=== PATIENT | female | born 1955 | race American Indian/Alaskan Native ===

== ENCOUNTER 2016-09-26 05:36 | Inpatient (IN) | payer OTHER ==
[2016-09-26] MEDS ORDERED: ZOFRAN ODT PO ONE (06:23)
[2016-09-26 07:02] LABS: Basophils % (Auto) 0.4 % (0.0-1.8); Eosinophils % (Auto) 0.8 % (0.0-4.3); Hematocrit 38.7 % (30.3-42.9); Hemoglobin 12.9 gm/dl (10.1-14.3); Mean Corpuscular HGB Conc 33 % (30-34); Mean Corpuscular Hemoglobin 30 pg (28-32); Mean Corpuscular Volume 90 fl (79-97); Platelet Count 312 K/mm3 (140-440); White Blood Count 14.1 K/mm3 (4.5-11.0)
[2016-09-26 07:15] LABS: Albumin 4.4 g/dL (3.9-5); Albumin/Globulin Ratio 1.6 %; Bilirubin,Total 0.4 mg/dL (0.1-1.2); Calcium 9.3 mg/dL (8.4-10.2); Chloride 83.1 mmol/L (98-107); Potassium 4.9 mmol/L (3.6-5.0); Total Protein 7.2 g/dL (6.3-8.2)
[2016-09-26] MEDS ORDERED: NACL 0.9% 1000 ML 1,000 ML IV ONE (08:24)
[2016-09-26] MEDS ORDERED: MORPHINE IV ONE (08:25)
--- NOTE | 2016-09-26 08:28 | Emergency Department Report ---
HPI - General Chief Complaint: Abdominal Pain Time Seen by Provider: 09/26/16 08:10 - HPI HPI: This is a 60-year-old Afro-[place] female presents to the emergency department from home with complaint of a one-week history of generalized abdominal discomfort, nausea with some slight vomiting, decreased appetite and a 7 pound weight loss. Patient has [id number] diabetes. She went to an urgent care for these symptoms and was placed on some Flagyl. Her primary care doctor is Dr. Hartley. No recent travel or sick contacts at home. She denies any fever, dysuria, vaginal bleeding, vaginal discharge. She is having some trouble urinating and having bowel movements secondary to her dehydration and lack of food intake. ED Past Medical Hx - Past Medical History Previous Medical History?: Yes Hx Diabetes: Yes - Surgical History Past Surgical History?: No - Social History Smoking Status: Never Smoker Substance Use Type: None ED Review of Systems ROS: Stated complaint: NAUSEA/UNABLE TO EAT/VOMITING Other details as noted in HPI Comment: All other systems reviewed and negative Constitutional: denies: chills, fever Eyes: denies: eye pain, eye discharge, vision change ENT: denies: ear pain, throat pain Respiratory: denies: cough, shortness of breath, wheezing Cardiovascular: denies: chest pain, palpitations Endocrine: unexplained weight loss. denies: unexplained weight gain Gastrointestinal: abdominal pain, nausea, vomiting Genitourinary: denies: hematuria, discharge Musculoskeletal: denies: back pain, joint swelling, arthralgia Skin: denies: rash, lesions Neurological: denies: headache, weakness, paresthesias Physical Exam - Physical Exam Vital Signs: Vital Signs 09/26/16 09/26/16 06:14 08:11 Temperature 98.1 F Pulse Rate 75 Respiratory 18 18 Rate Blood Pressure 125/77 O2 Sat by Pulse 100 100 Oximetry Physical Exam: GENERAL: The patient is well-developed well-nourished. HEENT: Normocephalic. Atraumatic. Extraocular motions are intact. Patient has moist mucous membranes. Pupils equal reactive to light bilaterally. NECK: Supple. Trachea is midline. CHEST/LUNGS: Clear to auscultation. There is no respiratory distress noted. HEART/CARDIOVASCULAR: Regular. There is no tachycardia. There is no gallop rub or murmur. ABDOMEN: Abdomen is soft. There is some generalized tenderness to palpation of the abdomen. No guarding rebound tenderness. Patient has normal bowel sounds. There is no abdominal distention. SKIN: Skin is warm and dry. NEURO: The patient is awake, alert, and oriented. The patient is cooperative. The patient has no focal neurologic deficits. The patient has normal speech. MUSCULOSKELETAL: There is no tenderness or deformity. There is no limitation range of motion. There is no evidence of acute injury. ED Course Vital Signs 09/26/16 09/26/16 06:14 08:11 Temperature 98.1 F Pulse Rate 75 Respiratory 18 18 Rate Blood Pressure 125/77 O2 Sat by Pulse 100 100 Oximetry ED Medical Decision Making - Lab Data Result diagrams: 09/26/16 06:33 09/26/16 06:33 - Radiology Data Radiology results: report reviewed ULTRASOUND RENAL BILATERAL HISTORY: Acute renal failure. TECHNIQUE: transabdominal ultrasound with color Doppler interrogation. FINDINGS: Scans of the kidneys show normal renal contours. There is normal central calyceal clustering and good preservation of the cortical thickness. There is no evidence of mass or hydronephrosis. The views of the bladder and the region of the ureters appear normal. IMPRESSION: Unremarkable renal ultrasound. PROCEDURE: CT ABDOMEN PELVIS WO CON TECHNIQUE: Computerized axial tomography of the abdomen and pelvis was performed without intravenous contrast. This study is performed without intravascular contrast material and its sensitivity for abdominal and pelvic pathology, including neoplasms, inflammation, abscess, free fluid, thrombosis, arterial dissection and infarction, is reduced compared with a contrast enhanced study. HISTORY: abd pain COMPARISON: No prior studies are available for comparison. FINDINGS: Visualized lower thorax: No significant abnormality. Liver: Normal size and attenuation. Spleen: Normal size and attenuation. Gallbladder and biliary system: Normal. Pancreas: Normal. Adrenals: Small left adrenal gland nodule 1.3 x 1.1 centimeters. Kidneys: Suspect 8 millimeter cyst in the right mid anterior kidney. GI tract: No oral contrast. Appendix is seen without evidence of wall thickening or periappendiceal stranding. No evidence of acute appendicitis seen at this time. Scattered large bowel diverticulosis. Scattered areas of luminal narrowing. Underlying malignancy not excludable. Small amount of contrast like material seen within the large bowel. Incompletely distended stomach with prominent rugal folds may reflect gastritis. Possible small duodenal cyst. Possible spasm in the splenic flexure distal descending colon. Possible diverticulitis of the distal sigmoid colon with slight stranding and trace 2 cc fluid Lymph nodes and mesentery: Scattered mildly prominent lymph nodes including right lower quadrant area 1 centimeter range. Vasculature: Normal. Bladder: Normal. Reproductive organs: Lobular uterus. Peritoneum: 2 cc fluid pelvis. Musculoskeletal structures: No significant abnormality. Other: None. IMPRESSION: Possible focal acute diverticulitis of the distal sigmoid colon inconclusive. Followup CT scan with abundant oral contrast and IV contrast is advised. Scattered diverticulosis. Indeterminate mildly prominent gastric folds stomach. No evidence of acute appendicitis. - Medical Decision Making This is a 60-year-old female who presents to the emergency department with a 1 week history of some otherwise abdominal discomfort, nausea and vomiting, 7 pound weight loss. Patient has some abnormal labs with hyponatremia with a sodium of 125, acute kidney injury and renal failure with a creatinine 2.8, and a leukocytosis of 14,000. The CT of the abdomen and pelvis was done without contrast secondary to her renal insufficiency and came back showing possible diverticulitis of the distal sigmoid colon. For this reason she was started on IV antibiotics. A renal ultrasound was done to look for any other source of her acute kidney injury but it shows no obstructive uropathy or any significant chronic medical renal changes. However the patient will be admitted to the hospital for dehydration, acute renal failure and her hyponatremia and has been accepted for admission by the hospitalist. Critical Care Time: No Critical care attestation.: If time is entered above; I have spent that time in minutes in the direct care of this critically ill patient, excluding procedure time. ED Disposition Clinical Impression: Acute kidney injury, Hyponatremia Renal failure Qualifiers: Renal failure chronicity: acute Acute renal failure type: unspecified Qualified Code(s): N17.9 - Acute kidney failure, unspecified Abdominal pain Qualifiers: Abdominal location: generalized Qualified Code(s): R10.84 - Generalized abdominal pain Disposition: OP ADMITTED IP TO THIS HOSP Is pt being admited?: Yes Condition: Stable Time of Disposition: 13:57
--- NOTE | 2016-09-26 09:16 | Cat Scan Report ---
FINAL REPORT PROCEDURE: CT ABDOMEN PELVIS WO CON TECHNIQUE: Computerized axial tomography of the abdomen and pelvis was performed without intravenous contrast. This study is performed without intravascular contrast material and its sensitivity for abdominal and pelvic pathology, including neoplasms, inflammation, abscess, free fluid, thrombosis, arterial dissection and infarction, is reduced compared with a contrast enhanced study. HISTORY: abd pain COMPARISON: No prior studies are available for comparison. FINDINGS: Visualized lower thorax: No significant abnormality. Liver: Normal size and attenuation. Spleen: Normal size and attenuation. Gallbladder and biliary system: Normal. Pancreas: Normal. Adrenals: Small left adrenal gland nodule 1.3 x 1.1 centimeters. Kidneys: Suspect 8 millimeter cyst in the right mid anterior kidney. GI tract: No oral contrast. Appendix is seen without evidence of wall thickening or periappendiceal stranding. No evidence of acute appendicitis seen at this time. Scattered large bowel diverticulosis. Scattered areas of luminal narrowing. Underlying malignancy not excludable. Small amount of contrast like material seen within the large bowel. Incompletely distended stomach with prominent rugal folds may reflect gastritis. Possible small duodenal cyst. Possible spasm in the splenic flexure distal descending colon. Possible diverticulitis of the distal sigmoid colon with slight stranding and trace 2 cc fluid Lymph nodes and mesentery: Scattered mildly prominent lymph nodes including right lower quadrant area 1 centimeter range. Vasculature: Normal. Bladder: Normal. Reproductive organs: Lobular uterus. Peritoneum: 2 cc fluid pelvis. Musculoskeletal structures: No significant abnormality. Other: None. IMPRESSION: Possible focal acute diverticulitis of the distal sigmoid colon inconclusive. Followup CT scan with abundant oral contrast and IV contrast is advised. Scattered diverticulosis. Indeterminate mildly prominent gastric folds stomach. No evidence of acute appendicitis.
[2016-09-26] MEDS ORDERED: ZOSYN/NS 4.5GM/100ML 4.5 GM/100 ML VIAL IV ONE (09:20)
[2016-09-26 09:21] LABS: Bacteria,Urine 1+ /HPF (Negative); Bilirubin,Urine NEG (Negative); Blood,Urine NEG (Negative); Ketones,Urine NEG (Negative); Leukocyte Esterase,Urine TR (Negative); Mucus,Urine FEW /HPF; Nitrite,Urine NEG (Negative); Protein,Urine <15 mg/dL mg/dL (Negative); Urobilinogen,Urine < 2.0 mg/dL (<2.0)
--- NOTE | 2016-09-26 09:53 | Ultrasound Report ---
ULTRASOUND RENAL BILATERAL HISTORY: Acute renal failure. TECHNIQUE: transabdominal ultrasound with color Doppler interrogation. FINDINGS: Scans of the kidneys show normal renal contours. There is normal central calyceal clustering and good preservation of the cortical thickness. There is no evidence of mass or hydronephrosis. The views of the bladder and the region of the ureters appear normal. IMPRESSION: Unremarkable renal ultrasound.
[2016-09-26] MEDS ORDERED: DULCOLAX PR PRN (10:24)
[2016-09-26] MEDS ORDERED: D50W (25GM) IV PRN (10:24)
[2016-09-26] MEDS ORDERED: MILK OF MAGNESIA PO PRN (10:24)
[2016-09-26] MEDS ORDERED: MORPHINE IV PRN (11:00)
[2016-09-26] MEDS ORDERED: ZOFRAN IV PRN (11:00)
[2016-09-26] MEDS ORDERED: PERCOCET 5/325 PO PRN (11:00)
[2016-09-26] MEDS ORDERED: TYLENOL PO PRN (11:00)
--- NOTE | 2016-09-26 11:19 | History and Physical Report ---
History of Present Illness Date of examination: 09/26/16 Date of admission: 09/26/16 Chief complaint: Abdominal pain Past History Past Medical History: diabetes, hepatitis (Hep C, 2002), hypertension, hyperlipidemia Past Surgical History: No surgical history Social history: , alcohol abuse (Occasional Beer). denies: smoking Family history: cancer (Pancreatic), diabetes Medications and Allergies Allergies Allergy/AdvReac Type Severity Reaction Status Date / Time No Known Allergies Allergy Unverified 09/26/16 06:22 Active Meds: Active Medications Acetaminophen (Tylenol) 650 mg PO Q4H PRN PRN Reason: Pain MILD(1-3)/Fever >100.5/MEDRANO Bisacodyl (Dulcolax) 10 mg [place] QDAY PRN PRN Reason: Constipation unrelieved by MOM Dextrose (D50w (25gm)) 50 ml IV PRN PRN PRN Reason: Hypoglycemia Enoxaparin Sodium (Lovenox) 30 mg SUB-Q QDAY NOEL Levofloxacin/Dextrose (Levaquin 500mg/100ml) 500 mg in 100 mls @ 100 mls/hr IV Q24HR NOEL PRN Reason: Protocol Metronidazole (Flagyl 500 Mg/100 Ml) 500 mg in 100 mls @ 100 mls/hr IV Q8HR NOEL Sodium Chloride (Nacl 0.9% 1000 Ml) 1,000 mls @ 150 mls/hr IV DIRECT NOEL Insulin Aspart (Novolog) 0 units SUB-Q ACHS NOEL PRN Reason: Protocol Magnesium Hydroxide (Milk Of Magnesia) 30 ml PO Q4H PRN PRN Reason: Constipation Morphine Sulfate (Morphine) 2 mg IV Q4H PRN PRN Reason: Pain, Moderate (4-6) Ondansetron HCl (Zofran) 4 mg IV Q8H PRN PRN Reason: N/V unrelieved by Reglan Oxycodone/Acetaminophen (Percocet 5/325) 1 tab PO Q6H PRN PRN Reason: Pain, Moderate (4-6) Review of Systems Constitutional: weight loss, poor appetite, no fever, no chills Ears, nose, mouth and throat: no decreased hearing, no nasal congestion Breasts: normal Respiratory: no cough with sputum, no shortness of breath, no congestion Gastrointestinal: abdominal pain, no nausea, no vomiting, no diarrhea, no constipation Genitourinary Female: dysmenorrhea, no dyspareunia Rectal: no pain Musculoskeletal: no low back pain, no leg numbness/tingling, no gait dysfunction Integumentary: rash, darkening of skin, depigmentation Exam - Constitutional Vitals: Temp Pulse Resp BP Pulse Ox 98.1 F 75 18 120/63 99 09/26/16 06:14 09/26/16 06:14 09/26/16 09:32 09/26/16 08:46 09/26/16 08:46 Results - Labs CBC & Chem 7: 09/26/16 06:33 09/26/16 06:33 Labs: Laboratory Last Values WBC 14.1 K/mm3 (4.5-11.0) H 09/26/16 06:33 RBC 4.30 M/mm3 (3.65-5.03) 09/26/16 06:33 Hgb 12.9 gm/dl (10.1-14.3) 09/26/16 06:33 Hct 38.7 % (30.3-42.9) 09/26/16 06:33 MCV 90 fl (79-97) 09/26/16 06:33 MCH 30 pg (28-32) 09/26/16 06:33 MCHC 33 % (30-34) 09/26/16 06:33 RDW 13.0 % (13.2-15.2) L 09/26/16 06:33 Plt Count 312 K/mm3 (140-440) 09/26/16 06:33 Lymph % (Auto) 31.4 % (13.4-35.0) 09/26/16 06:33 [place] % (Auto) 8.4 % (0.0-7.3) H 09/26/16 06:33 Eos % (Auto) 0.8 % (0.0-4.3) 09/26/16 06:33 Baso % (Auto) 0.4 % (0.0-1.8) 09/26/16 06:33 Lymph # 4.4 K/mm3 (1.2-5.4) 09/26/16 06:33 [place] # 1.2 K/mm3 (0.0-0.8) H 09/26/16 06:33 Eos # 0.1 K/mm3 (0.0-0.4) 09/26/16 06:33 Baso # 0.1 K/mm3 (0.0-0.1) 09/26/16 06:33 Seg Neutrophils % 59.0 % (40.0-70.0) 09/26/16 06:33 Seg Neutrophils # 8.3 K/mm3 (1.8-7.7) H 09/26/16 06:33 Sodium 125 mmol/L (137-145) L 09/26/16 06:33 Potassium 4.9 mmol/L (3.6-5.0) 09/26/16 06:33 Chloride 83.1 mmol/L (98-107) L 09/26/16 06:33 Carbon Dioxide 25 mmol/L (22-30) 09/26/16 06:33 Anion Gap 22 mmol/L 09/26/16 06:33 BUN 28 mg/dL (7-17) H 09/26/16 06:33 Creatinine 2.8 mg/dL (0.7-1.2) H 09/26/16 06:33 Estimated GFR 21 ml/min 09/26/16 06:33 BUN/Creatinine Ratio 10.00 % 09/26/16 06:33 Glucose 138 mg/dL (65-100) H 09/26/16 06:33 Calcium 9.3 mg/dL (8.4-10.2) 09/26/16 06:33 Total Bilirubin 0.40 mg/dL (0.1-1.2) 09/26/16 06:33 AST 18 units/L (5-40) 09/26/16 06:33 ALT 14 units/L (7-56) 09/26/16 06:33 Alkaline Phosphatase 80 units/L (35-129) 09/26/16 06:33 Total Protein 7.2 g/dL (6.3-8.2) 09/26/16 06:33 Albumin 4.4 g/dL (3.9-5) 09/26/16 06:33 Albumin/Globulin Ratio 1.6 % 09/26/16 06:33 Lipase 42 units/L (13-60) 09/26/16 06:33 Urine Color Yellow (Yellow) 09/26/16 09:04 Urine Turbidity Clear (Clear) 09/26/16 09:04 Urine pH 5.0 (5.0-7.0) 09/26/16 09:04 Ur Specific [place] 1.011 (1.003-1.030) 09/26/16 09:04 Urine Protein <15 mg/dl mg/dL (Negative) 09/26/16 09:04 Urine Glucose (UA) Neg mg/dL (Negative) 09/26/16 09:04 Urine Ketones Neg mg/dL (Negative) 09/26/16 09:04 Urine Blood Neg (Negative) 09/26/16 09:04 Urine Nitrite Neg (Negative) 09/26/16 09:04 Urine Bilirubin Neg (Negative) 09/26/16 09:04 Urine Urobilinogen < 2.0 mg/dL (<2.0) 09/26/16 09:04 Ur Leukocyte Esterase Tr (Negative) 09/26/16 09:04 Urine WBC (Auto) 1.0 /HPF (0.0-6.0) 09/26/16 09:04 Urine RBC (Auto) 1.0 /HPF (0.0-6.0) 09/26/16 09:04 U Epithel Cells (Auto) 1.0 /HPF (0-13.0) 09/26/16 09:04 Urine Bacteria (Auto) 1+ /HPF (Negative) 09/26/16 09:04 Urine Mucus Few /HPF 09/26/16 09:04
[2016-09-26] MEDS: NOVOLOG SUB-Q SCH ×3 (11:45→23:14)
[2016-09-26] MEDS: NACL 0.9% 1000 ML 1,000 ML IV SCH (12:48)
--- NOTE | 2016-09-26 13:10 | History and Physical Report ---
History of Present Illness Date of examination: 09/26/16 Date of admission: 09/26/16 10:24 Chief complaint: Abdominal pain History of present illness: 60-year-old with past medical history hypertension diabetes hyperlipidemia who presented with 2 weeks of abdominal pain. She states that her symptoms started after she eats some take-out that she didn't quite rest. She initially had vomiting in nausea that began 2 hours after eating the food. Over the past week she's complaining of anorexia, weight loss of 7 pounds, continued nausea and vomiting, however the nausea and vomiting has now resolved. She was complaining of abdominal pain which felt like a band across her hypochondrium, 7 out of 10, dull, exacerbated by eating. She'll complaining of not having any bowel movements, but she also feels that that is because she was able to take any food and keep it down. She denies fever she admits chills, she also is complaining of reduced urine output. She states that she went to go see a doctor in urgent care some days ago, she did not have any abdominal imaging but she was started on Flagyl. At this time she states that her pain is resolved, she does admit to feeling thirsty and dry. Past History Past Medical History: diabetes, hepatitis (Hepatitis C 2002 and completed the 6 months treatment), hypertension, hyperlipidemia Past Surgical History: No surgical history Social history: , lives with family, alcohol abuse (Drink a beer occasionally), full code. denies: smoking Family history: cancer (pancreatic), diabetes Medications and Allergies Allergies Allergy/AdvReac Type Severity Reaction Status Date / Time No Known Allergies Allergy Unverified 09/26/16 06:22 Home Medications Medication Instructions Recorded Confirmed Last Taken Type AtorvaSTATin [Lipitor] 40 mg PO QHS 09/26/16 09/26/16 09/25/16 History Carvedilol 12.5 mg PO DAILY 09/26/16 09/26/16 09/25/16 History Lisinopril 30 mg PO DAILY 09/26/16 09/26/16 09/25/16 History metFORMIN [Glucophage] 850 mg PO DAILY 09/26/16 09/26/16 1 Day Ago History Ciprofloxacin HCl [Ciprofloxacin 500 mg PO Q12H #14 tab 09/27/16 Unknown Rx TAB] metroNIDAZOLE [Flagyl] 500 mg PO Q8HR #21 tablet 09/27/16 Unknown Rx Active Meds: Active Medications Acetaminophen (Tylenol) 650 mg PO Q4H PRN PRN Reason: Pain MILD(1-3)/Fever >100.5/MEDRANO Bisacodyl (Dulcolax) 10 mg [place] QDAY PRN PRN Reason: Constipation unrelieved by MOM Dextrose (D50w (25gm)) 50 ml IV PRN PRN PRN Reason: Hypoglycemia Enoxaparin Sodium (Lovenox) 30 mg SUB-Q QDAY [facility] Levofloxacin/Dextrose (Levaquin 500mg/100ml) 500 mg in 100 mls @ 100 mls/hr IV Q24HR NOEL PRN Reason: Protocol Metronidazole (Flagyl 500 Mg/100 Ml) 500 mg in 100 mls @ 100 mls/hr IV Q8HR [facility] [place] Sodium Chloride (Nacl 0.9% 1000 Ml) 1,000 mls @ 150 mls/hr IV DIRECT NOEL Last Admin: 09/26/16 12:48 Dose: 150 mls/hr Insulin Aspart (Novolog) 0 units SUB-Q ACHS NOEL PRN Reason: Protocol Last Admin: 09/26/16 11:45 Dose: Not Given Magnesium Hydroxide (Milk Of Magnesia) 30 ml PO Q4H PRN PRN Reason: Constipation Morphine Sulfate (Morphine) 2 mg IV Q4H PRN PRN Reason: Pain, Moderate (4-6) Ondansetron HCl (Zofran) 4 mg IV Q8H PRN PRN Reason: N/V unrelieved by Reglan Oxycodone/Acetaminophen (Percocet 5/325) 1 tab PO Q6H PRN PRN Reason: Pain, Moderate (4-6) Review of Systems Constitutional: fever, chills Ears, nose, mouth and throat: no decreased hearing, no nasal congestion, no headache Breasts: normal Cardiovascular: no chest pain, no syncope, no dyspnea on exertion Respiratory: no cough with sputum, no shortness of breath Gastrointestinal: abdominal pain, no nausea, no vomiting, no diarrhea, no constipation Genitourinary Female: no dyspareunia, no stress incontinence Rectal: no pain Musculoskeletal: no low back pain, no leg numbness/tingling, no gait dysfunction Integumentary: darkening of skin, depigmentation Neurological: no head injury, no seizures, no syncope, no headaches Psychiatric: no anxiety, no suicidal ideation, no depression Endocrine: weight change Exam - Constitutional Vitals: Temp Pulse Resp BP Pulse Ox 98.1 F 75 18 115/67 99 09/26/16 06:14 09/26/16 06:14 09/26/16 09:32 09/26/16 11:46 09/26/16 11:46 General appearance: Present: no acute distress - EENT Eyes: Present: PERRL ENT: hearing intact - Neck Neck: Present: supple - Respiratory Respiratory effort: normal Respiratory: bilateral: CTA - Cardiovascular Rhythm: regular Heart Sounds: Present: S1 & S2 - Extremities Extremities: pulses symmetrical, No edema Peripheral Pulses: within normal limits - Abdominal General gastrointestinal: Present: soft, non-tender, normal bowel sounds Female genitourinary: Present: normal - Integumentary Integumentary: Present: warm, dry Body Four View: 1 - Chronic skin condition; Dry and discoloration 2 - Chronic skin condition; dry and discoloration - Musculoskeletal Musculoskeletal: strength equal bilaterally - Psychiatric Psychiatric: appropriate mood/affect, intact judgment & insight - Neurologic Neurologic: CNII-XII intact, moves all extremities - Allied Health Allied health notes reviewed: nursing Results - Labs CBC & Chem 7: 09/27/16 05:01 09/27/16 05:01 Labs: Laboratory Last Values WBC 14.1 K/mm3 (4.5-11.0) H 09/26/16 06:33 RBC 4.30 M/mm3 (3.65-5.03) 09/26/16 06:33 Hgb 12.9 gm/dl (10.1-14.3) 09/26/16 06:33 Hct 38.7 % (30.3-42.9) 09/26/16 06:33 MCV 90 fl (79-97) 09/26/16 06:33 MCH 30 pg (28-32) 09/26/16 06:33 MCHC 33 % (30-34) 09/26/16 06:33 RDW 13.0 % (13.2-15.2) L 09/26/16 06:33 Plt Count 312 K/mm3 (140-440) 09/26/16 06:33 Lymph % (Auto) 31.4 % (13.4-35.0) 09/26/16 06:33 [place] % (Auto) 8.4 % (0.0-7.3) H 09/26/16 06:33 Eos % (Auto) 0.8 % (0.0-4.3) 09/26/16 06:33 Baso % (Auto) 0.4 % (0.0-1.8) 09/26/16 06:33 Lymph # 4.4 K/mm3 (1.2-5.4) 09/26/16 06:33 [place] # 1.2 K/mm3 (0.0-0.8) H 09/26/16 06:33 Eos # 0.1 K/mm3 (0.0-0.4) 09/26/16 06:33 Baso # 0.1 K/mm3 (0.0-0.1) 09/26/16 06:33 Seg Neutrophils % 59.0 % (40.0-70.0) 09/26/16 06:33 Seg Neutrophils # 8.3 K/mm3 (1.8-7.7) H 09/26/16 06:33 Sodium 125 mmol/L (137-145) L 09/26/16 06:33 Potassium 4.9 mmol/L (3.6-5.0) 09/26/16 06:33 Chloride 83.1 mmol/L (98-107) L 09/26/16 06:33 Carbon Dioxide 25 mmol/L (22-30) 09/26/16 06:33 Anion Gap 22 mmol/L 09/26/16 06:33 BUN 28 mg/dL (7-17) H 09/26/16 06:33 Creatinine 2.8 mg/dL (0.7-1.2) H 09/26/16 06:33 Estimated GFR 21 ml/min 09/26/16 06:33 BUN/Creatinine Ratio 10.00 % 09/26/16 06:33 Glucose 138 mg/dL (65-100) H 09/26/16 06:33 Calcium 9.3 mg/dL (8.4-10.2) 09/26/16 06:33 Total Bilirubin 0.40 mg/dL (0.1-1.2) 09/26/16 06:33 AST 18 units/L (5-40) 09/26/16 06:33 ALT 14 units/L (7-56) 09/26/16 06:33 Alkaline Phosphatase 80 units/L (35-129) 09/26/16 06:33 Total Protein 7.2 g/dL (6.3-8.2) 09/26/16 06:33 Albumin 4.4 g/dL (3.9-5) 09/26/16 06:33 Albumin/Globulin Ratio 1.6 % 09/26/16 06:33 Lipase 42 units/L (13-60) 09/26/16 06:33 Urine Color Yellow (Yellow) 09/26/16 09:04 Urine Turbidity Clear (Clear) 09/26/16 09:04 Urine pH 5.0 (5.0-7.0) 09/26/16 09:04 Ur Specific [place] 1.011 (1.003-1.030) 09/26/16 09:04 Urine Protein <15 mg/dl mg/dL (Negative) 09/26/16 09:04 Urine Glucose (UA) Neg mg/dL (Negative) 09/26/16 09:04 Urine Ketones Neg mg/dL (Negative) 09/26/16 09:04 Urine Blood Neg (Negative) 09/26/16 09:04 Urine Nitrite Neg (Negative) 09/26/16 09:04 Urine Bilirubin Neg (Negative) 09/26/16 09:04 Urine Urobilinogen < 2.0 mg/dL (<2.0) 09/26/16 09:04 Ur Leukocyte Esterase Tr (Negative) 09/26/16 09:04 Urine WBC (Auto) 1.0 /HPF (0.0-6.0) 09/26/16 09:04 Urine RBC (Auto) 1.0 /HPF (0.0-6.0) 09/26/16 09:04 U Epithel Cells (Auto) 1.0 /HPF (0-13.0) 09/26/16 09:04 Urine Bacteria (Auto) 1+ /HPF (Negative) 09/26/16 09:04 Urine Mucus Few /HPF 09/26/16 09:04 Assessment and Plan Assessment and plan: 60-year-old -[place] female presented to the ED with complaints of 2 weeks of abdomen pain, nausea and vomiting. The patient reported going to the urgent care on Wednesday,09/23/16, and received antibiotics, CT of Abdomen was ordered but could not get it done because she to be NPO prior. Patient reported over the course of the 2 weeks she's tried Pedialyte and had no relief of symptoms. However, yesterday she had Ensure supplement and stated, it did not aggravate her stomach symptoms. Patient's past medical history diabetes, hypertension, hyperlipidemia, hepatitis C 2002 and TIA 1978. On exam, patient reported feeling better, her abdominal pain is 0 after receiving morphine while in the ER. Patient denies fever, chills, headache, dizziness, nausea and vomiting. 1. Acute diverticulitis- Antibiotics ordered, pain medicine ordered when necessary, IV fluids, 2. Hyponatremia- continuous normal saline IV fluid ordered, monitor electrolytes levels 3. Acute kidney injury/vasomotor nephropathy- most likely due to dehydration, IV fluids and progress 4. DM type 2 [id number] - monitor Accu-Cheks and insulin sliding scale ordered while in the hospital, hold metformin due to acute kidney injury 5. HTN-hold SILVESTRE inhibitor and diuretic due to acute kidney injury 6. Hyperlipidemia-continue statin 7. DVT prophylaxis - Lovenox ordered Advance Directives: Yes VTE prophylaxis?: Chemical Plan of care discussed with patient/family: Yes
[2016-09-26] MEDS: FLAGYL 500 MG/100 ML 500 MG/100 ML BAG IV SCH ×2 (15:07→23:13)
[2016-09-27] MEDS: NACL 0.9% 1000 ML 1,000 ML IV SCH (04:39)
[2016-09-27 05:44] LABS: Basophils % (Auto) 0.4 % (0.0-1.8); Eosinophils % (Auto) 1.3 % (0.0-4.3); Hematocrit 35.6 % (30.3-42.9); Hemoglobin 11.7 gm/dl (10.1-14.3); Mean Corpuscular HGB Conc 33 % (30-34); Mean Corpuscular Hemoglobin 30 pg (28-32); Mean Corpuscular Volume 90 fl (79-97); Platelet Count 281 K/mm3 (140-440); Red Blood Count 3.95 M/mm3 (3.65-5.03); Red Cell Distribution Width 13.4 % (13.2-15.2); White Blood Count 11.2 K/mm3 (4.5-11.0)
[2016-09-27 06:02] LABS: Anion Gap 16 mmol/L; Blood Urea Nitrogen 15 mg/dL (7-17); Calcium 8.7 mg/dL (8.4-10.2); Carbon Dioxide 26 mmol/L (22-30); Chloride 100.8 mmol/L (98-107); Glucose 112 mg/dL (65-100); Potassium 5.1 mmol/L (3.6-5.0); Sodium 138 mmol/L (137-145)
[2016-09-27] MEDS: FLAGYL 500 MG/100 ML 500 MG/100 ML BAG IV SCH (06:52)
[2016-09-27] MEDS: NOVOLOG SUB-Q SCH ×2 (08:30→14:34)
[2016-09-27 08:45] VITALS: BP 129/77
[2016-09-27] MEDS ORDERED: KIONEX PO ONE (09:47)
--- NOTE | 2016-09-27 09:55 | Discharge Summary ---
Providers - Providers Date of Admission: 09/26/16 10:24 Attending physician: AKILAH NUNO MD Primary care physician: ALFRED RIVERA Hospitalization Condition: Stable Hospital course: 60-year-old -[place] female who presented with nausea vomiting, abdominal pain chills poor urine output, poor by mouth intake for 2 weeks. She has found some acute diverticulitis and acute kidney injury due to dehydration/ visible to nephropathy. She received IV antibiotics and IV fluids, and she clinically improved, pain resolved and renal function returned to normal values. She is being discharged an antibiotic course to take at home. Discharge diagnoses 1. Acute diverticulitis- 2. Hyponatremia/dehydration 3. Acute kidney injury/vasomotor nephropathy- 4. DM type 2 [id number] 5. HTN- 6. Hyperlipidemia Disposition: DC-01 TO HOME OR SELFCARE Time spent for discharge: 35 minutes Core Measure Documentation - Palliative Care Palliative Care/ Comfort Measures: Not Applicable - Core Measures Any of the following diagnoses?: none Exam - Constitutional Vitals: Temp Pulse Resp BP Pulse Ox 98.0 F 68 16 129/77 99 09/27/16 08:44 09/27/16 08:44 09/27/16 08:44 09/27/16 08:44 09/27/16 08:44 General appearance: Present: no acute distress, well-nourished - EENT Eyes: Present: PERRL ENT: hearing intact, clear oral mucosa - Neck Neck: Present: supple, normal ROM - Respiratory Respiratory effort: normal Respiratory: bilateral: CTA - Cardiovascular Heart Sounds: Present: S1 & S2. Absent: rub, click - Extremities Extremities: pulses symmetrical, No edema Peripheral Pulses: within normal limits - Abdominal General gastrointestinal: Present: soft, non-tender, non-distended, normal bowel sounds Female genitourinary: Present: normal - Integumentary Integumentary: Present: clear, warm, dry - Musculoskeletal Musculoskeletal: gait normal, strength equal bilaterally - Psychiatric Psychiatric: appropriate mood/affect, intact judgment & insight - Neurologic Neurologic: CNII-XII intact, moves all extremities Plan Follow up with: ALFRED RIVERA MD [Primary Care Provider] - 3-5 Days Prescriptions: Ciprofloxacin HCl [Ciprofloxacin TAB] 500 mg PO Q12H #14 tab metroNIDAZOLE [Flagyl] 500 mg PO Q8HR #21 tablet
[2016-09-27] MEDS ORDERED: LOVENOX SUB-Q SCH (10:00)
[2016-09-27] MEDS ORDERED: LEVAQUIN 500MG/100ML 500 MG/100 ML BAG IV SCH (10:00)
== END 2016-09-27 13:50 | disposition home or self-care (01) | DRG 391 ==
LOC: ED 05:36 → 3A 10:24
PROVIDERS: ADMIT Internal Medicine; ATTEND Internal Medicine
DX: K57.32 Diverticulitis of large intestine without perforation or abscess without bleeding (principal); N17.0 Acute kidney failure with tubular necrosis; E87.1 Hypo-osmolality and hyponatremia; E11.9 Type 2 diabetes mellitus without complications; E86.0 Dehydration; B19.20 Unspecified viral hepatitis C without hepatic coma; I10 Essential (primary) hypertension; E78.5 Hyperlipidemia, unspecified; Z83.3 Family history of diabetes mellitus; Z80.0 Family history of malignant neoplasm of digestive organs; Z79.899 Other long term (current) drug therapy
CPT/HCPCS: 36415; 74176; 76770; 80048; 80053; 81001; 82962; 83690; 85025; 87040; 96361; 96365; 96375; A9270-GY; J1650; J1956; J2270; J2543; J7030; Q0162